=== PATIENT | female | born 1960 | race Two or more races ===

== ENCOUNTER 2017-01-02 11:04 | Outpatient (CLI) ==
[2016-06-28 10:14] VITALS: BMI 35.1
[2017-01-02 11:20] LABS: BASOPHILS % (AUTO) 0.3 % (0.0-3.0); EOSINOPHILS # (AUTO) 0.2 K/ul (0.0-0.7); EOSINOPHILS % (AUTO) 2.2 % (0.0-7.0); HEMATOCRIT 40.8 % (37.0-47.0); HEMOGLOBIN 13.8 g/dl (12.0-16.0); IMMATURE GRANULOCYTE % (AUTO) 0.3 % (0.0-5.0); LYMPHOCYTES # (AUTO) 2.3 K/uL (0.60-3.4); MEAN CORPUSCULAR HEMOGLOBIN 29.4 pg (27.0-31.0); MEAN CORPUSCULAR HGB CONC 33.8 (31.8-35.4); MEAN CORPUSCULAR VOLUME 86.8 fl (81.0-99.0); MONOCYTES # (AUTO) 0.4 K/uL (0.4-2.0); NEUTROPHILS # (AUTO) 4.3 K/ul (2.0-6.9); NEUTROPHILS % (AUTO) 60.2; PLATELET COUNT 266 10^3/uL (140-440); WHITE BLOOD COUNT 7.15 K/ul (4.6-10.2)
[2017-01-02 12:02] LABS: ALBUMIN 4.1 g/dL (3.4-5.0); ALBUMIN/GLOBULIN RATIO 1.17; ANION GAP 17.4; BILIRUBIN,TOTAL 0.85 mg/dL (0.00-1.20); BUN/CREATININE RATIO 21.51; CALCIUM 9.6 mg/dL (8.2-10.2); CHOL/HDL RATIO 2.3 (4.5-5.5); CREATININE 0.79 mg/dL (0.60-1.30); POTASSIUM 4.4 mmol/L (3.5-5.10); TOTAL PROTEIN 7.6 g/dL (6.4-8.2)
--- NOTE | 2017-01-04 10:25 | MAMMO ---
EXAM: Digital screening mammogram HISTORY: Screening mammogram COMPARISON: Mammogram 07/13/2014 FINDINGS: Bilateral CC and MLO views of the breasts were performed digitally and demonstrate predom inantly fatty breast density (up to 25%). There is no abnormal nodule or calcification. There is no significant interval change. IMPRESSION: No new or suspicious calcification or nodule. RECOMMENDATION: Annual screening mammogram BIRADS category 1: negative
== END 2017-01-02 11:05 | disposition home or self-care (01) ==
LOC: RAD 11:04
PROVIDERS: ATTEND Emergency Medicine
DX: Z12.31 Encounter for screening mammogram for malignant neoplasm of breast (principal)
CPT/HCPCS: 36415; 80053; 80061; 83036; 84443; 85025

== ENCOUNTER 2017-06-04 10:14 | Outpatient (CLI) ==
[2016-06-28 10:14] VITALS: BMI 35.1
[2017-06-04 10:55] LABS: BASOPHILS % (AUTO) 0.2 % (0.0-3.0); EOSINOPHILS # (AUTO) 0.1 K/ul (0.0-0.7); EOSINOPHILS % (AUTO) 1.7 % (0.0-7.0); HEMATOCRIT 39.3 % (37.0-47.0); HEMOGLOBIN 13.2 g/dl (12.0-16.0); IMMATURE GRANULOCYTE % (AUTO) 0.2 % (0.0-5.0); LYMPHOCYTES # (AUTO) 2.3 K/uL (0.60-3.4); LYMPHOCYTES % (AUTO) 28.3 (10.0-50.0); MEAN CORPUSCULAR HEMOGLOBIN 28.9 pg (27.0-31.0); MEAN CORPUSCULAR HGB CONC 33.6 (31.8-35.4); MONOCYTES # (AUTO) 0.4 K/uL (0.4-2.0); MONOCYTES % (AUTO) 4.7 (0-10); NEUTROPHILS # (AUTO) 5.3 K/ul (2.0-6.9); NEUTROPHILS % (AUTO) 64.9; PLATELET COUNT 248 10^3/uL (140-440); RED BLOOD COUNT 4.57 10^6/ul (4.20-5.40); WHITE BLOOD COUNT 8.14 K/ul (4.6-10.2)
[2017-06-04 11:32] LABS: ALBUMIN 3.9 g/dL (3.4-5.0); ALBUMIN/GLOBULIN RATIO 1.18; ANION GAP 17.9; BILIRUBIN,TOTAL 1.04 mg/dL (0.00-1.20); BUN/CREATININE RATIO 17.07; CALCIUM 9.3 mg/dL (8.2-10.2); CHOL/HDL RATIO 2.2 (4.5-5.5); CREATININE 0.82 mg/dL (0.60-1.30); POTASSIUM 3.9 mmol/L (3.5-5.10); TOTAL PROTEIN 7.2 g/dL (6.4-8.2)
== END 2017-06-04 10:15 | disposition home or self-care (01) ==
LOC: LAB 10:14
PROVIDERS: ATTEND Internal Medicine
DX: E11.9 Type 2 diabetes mellitus without complications (principal); I10 Essential (primary) hypertension; I25.10 Atherosclerotic heart disease of native coronary artery without angina pectoris; E66.9 Obesity, unspecified
CPT/HCPCS: 36415; 80053; 80061; 82607; 83036; 84443; 85025

== ENCOUNTER 2017-11-22 12:34 | Outpatient (CLI) ==
[2016-06-28 10:14] VITALS: BMI 35.1
== END 2017-11-22 12:35 | disposition home or self-care (01) ==
LOC: LAB 12:34
PROVIDERS: ATTEND Internal Medicine
DX: E11.9 Type 2 diabetes mellitus without complications (principal); I10 Essential (primary) hypertension; E66.9 Obesity, unspecified
CPT/HCPCS: 36415; 80053; 80061; 83036; 84443; 85025

== ENCOUNTER 2018-03-13 12:33 | Outpatient (CLI) ==
[2016-06-28 10:14] VITALS: BMI 35.1
== END 2018-03-13 12:34 | disposition home or self-care (01) ==
LOC: LAB 12:33
PROVIDERS: ATTEND Internal Medicine
DX: E78.5 Hyperlipidemia, unspecified (principal); E11.9 Type 2 diabetes mellitus without complications; I10 Essential (primary) hypertension; I25.10 Atherosclerotic heart disease of native coronary artery without angina pectoris
CPT/HCPCS: 36415; 80053; 80061; 83036; 84439; 84443; 85025

== ENCOUNTER 2018-06-26 12:25 | Outpatient (CLI) ==
[2016-06-28 10:14] VITALS: BMI 35.1
== END 2018-06-26 12:26 ==
LOC: LAB 12:25
PROVIDERS: ATTEND Internal Medicine
DX: E11.9 Type 2 diabetes mellitus without complications (principal); I10 Essential (primary) hypertension; I25.10 Atherosclerotic heart disease of native coronary artery without angina pectoris; E66.9 Obesity, unspecified
CPT/HCPCS: 36415; 80053; 80061; 83036; 84439; 84443; 85025

== ENCOUNTER 2018-08-21 11:34 | Outpatient (CLI) ==
[2016-06-28 10:14] VITALS: BMI 35.1
== END 2018-08-21 11:35 | disposition home or self-care (01) ==
LOC: LAB 11:34
PROVIDERS: ATTEND Internal Medicine
DX: E78.5 Hyperlipidemia, unspecified (principal); E11.9 Type 2 diabetes mellitus without complications; I50.9 Heart failure, unspecified; I10 Essential (primary) hypertension; Z95.1 Presence of aortocoronary bypass graft
CPT/HCPCS: 36415; 80053; 80061; 83036; 84439; 84443; 85025

== ENCOUNTER 2018-12-23 14:37 | Outpatient (CLI) ==
[2016-06-28 10:14] VITALS: BMI 35.1
== END 2018-12-23 14:38 | disposition home or self-care (01) ==
LOC: LAB 14:37
PROVIDERS: ATTEND Internal Medicine
DX: E78.5 Hyperlipidemia, unspecified (principal); E11.9 Type 2 diabetes mellitus without complications; I10 Essential (primary) hypertension
CPT/HCPCS: 36415; 80053; 80061; 83036; 84439; 84443; 85025

== ENCOUNTER 2019-05-04 14:50 | Outpatient (CLI) ==
[2016-06-28 10:14] VITALS: BMI 35.1
== END 2019-05-04 14:51 | disposition home or self-care (01) ==
LOC: LAB 14:50
PROVIDERS: ATTEND Internal Medicine
DX: E11.9 Type 2 diabetes mellitus without complications (principal); I10 Essential (primary) hypertension; E66.9 Obesity, unspecified
CPT/HCPCS: 36415; 80053; 80061; 83036; 84439; 84443; 85025

== ENCOUNTER 2019-05-11 08:32 | Outpatient (CLI) ==
[2016-06-28 10:14] VITALS: BMI 35.1
--- NOTE | 2019-05-11 10:19 | US ---
EXAM: ULTRASOUND CAROTID DUPLEX, BILATERAL HISTORY: Dizziness FINDINGS: Patrick-scale ultrasound, color Doppler and spectral analysis was performed. Velocities are in meters per second. By patrick scale and color Doppler imaging, there were regions of heterogeneous plaque formation identi fied within the carotid bulbs and internal carotid arteries. These regions of plaque appeared to rem ain less than 50% vessel diameter. RIGHT: External carotid artery peak systolic velocity: 0.97 Common carotid artery peak systolic velocity/end diastolic velocity: 0.88/0.26 Internal carotid artery peak systolic velocity: 0.82 ICA/CCA peak systolic velocity ratio: 0.9 ICA end diastolic velocity: 0.37 LEFT: External carotid artery peak systolic velocity: 1.05/0.1 Common carotid artery peak systolic velocity/end diastolic velocity: 0.76/0.17 Internal carotid artery peak systolic velocity: 0.68 ICA/CCA peak systolic velocity ratio: 0.9 ICA end diastolic velocity: 0.35 The right and left vertebral arteries were antegrade. IMPRESSION: 1. By patrick scale and color Doppler imaging, there were regions of heterogeneous plaque formation edward ntified within the carotid bulbs and internal carotid arteries. These regions of plaque appeared to remain less than 50% vessel diameter. 2. Internal carotid artery peak systolic velocities and ICA/CCA peak systolic velocity ratios indic ate no hemodynamically significant stenosis bilaterally. 3. Both vertebral arteries were antegrade.
== END 2019-05-11 08:33 | disposition home or self-care (01) ==
LOC: RAD 08:32
PROVIDERS: ATTEND Internal Medicine
DX: R42 Dizziness and giddiness (principal)

== ENCOUNTER 2019-07-06 12:56 | Outpatient (CLI) ==
[2016-06-28 10:14] VITALS: BMI 35.1
== END 2019-07-06 12:57 | disposition home or self-care (01) ==
LOC: CAR 12:56
PROVIDERS: ATTEND Internal Medicine
DX: R06.02 Shortness of breath (principal); I10 Essential (primary) hypertension; I50.9 Heart failure, unspecified
CPT/HCPCS: 93005; 93010